=== PATIENT | male | born 1960 | race Caucasian/White ===

== ENCOUNTER → 2016-10-21 | Outpatient (CLI) | payer OTHER ==
[~2016-10-21] VITALS: Ht 188 cm; Wt 140.2 kg
[~2016-10-21] MED LIST: HYZAAR 100-21 TABLET PO; LO-DOSE ASPIRIN81 M2 PO; PROCARDIA XL90 MG PO; VIAGRA100 MG PO; ZOCOR20 MG PO; ZOCOR40 MG PO
== END | disposition home or self-care (01) ==
LOC: AMB 08:43
DX: Z12.11 Encounter for screening for malignant neoplasm of colon (principal); D12.4 Benign neoplasm of descending colon; K62.1 Rectal polyp; K64.8 Other hemorrhoids; I10 Essential (primary) hypertension; Z79.82 Long term (current) use of aspirin
CPT/HCPCS: 88305; 93005; B4087; J2250; J3010